=== PATIENT | male | born 1980 | race Caucasian/White ===

== ENCOUNTER 2017-02-05 21:07 | Emergency (ER) | payer BC ==
[~2017-02-05] VITALS: Ht 177.8 cm; Wt 103.9 kg
[~2017-02-05 21:07] MED LIST: LEVO50TA6; LEVO50TA6 PO; LPT/20 PO
[2017-02-05 21:22] VITALS: TEMP 37; Ht 177.8 cm; Wt 103.9 kg
[2017-02-05] MEDS ORDERED: ALBUT/IPRATROP 3MG/0.5MG NEB 3 ML VIAL INH STA (22:07)
[2017-02-05] MEDS ORDERED: DEXAMETHASONE SOD INJ 10 MG/ML VIAL PO ONE (22:15)
[2017-02-05 22:47] VITALS: O2SAT 98
--- NOTE | 2017-02-05 23:05 | DIAGNOSTIC IMAGING REPORT ---
CHEST 2 VIEWS ROUTINE CLINICAL HISTORY: Persistent cough COMPARISON STUDY: No previous studies for comparison. FINDINGS: The cardiac and mediastinal contours are normal. There is no evidence of focal pulmonary consolidation. There is no evidence of failure. No pleural effusions are visualized.[ IMPRESSION: No active disease in the chest. Electronically signed by: Mitul Esposito M.D. 02/05/2017 11:02 PM Dictated Date/Time: 02/05/2017 11:02 PM
[2017-02-05] MEDS ORDERED: PRED50TA PO (23:29)
[2017-02-05] MEDS ORDERED: HYDR5SYP11 PO (23:29)
[2017-02-05] MEDS ORDERED: HYCODAN 60ML BOTTLE HOMEPACK PO ONE (23:30)
[2017-02-05] MEDS ORDERED: ALBUTEROL HFA 8 GM INHALER INH ONE (23:49)
[2017-02-05 23:53] VITALS: BP 128/78; PULSE 82; O2SAT 96
--- NOTE | 2017-02-06 03:11 | EMERGENCY ROOM VISIT NOTE ---
History First contact with patient: 22:00 Chief Complaint: COUGH Stated Complaint: HEAVY COUGH, WEAKNESS, FEVER Nursing Triage Summary: c/o a cough for several days with green mucous History of Present Illness The patient is a 36 year old male who presents to the Emergency Room with complaints of productive cough for the past week with feeling fatigued and tired with subjective fever and chills. No temperature was taken. Patient denies chest pain, dyspnea, sore throat, neck stiffness, earache, sinus pain or congestion, abdominal pain. He does have asthma. He does not smoke. Review of Systems See HPI for pertinent positives & negatives. A total of 10 systems reviewed and were otherwise negative. Past Medical/Surgical History Medical Problems: (1) Asthma (2) Hyperlipidemia Nec/Nos (3) Hypothyroidism Nos (4) Pilonidal Cyst W/O Absc Surgical Problems: (1) H/O hernia repair Family History Cancer Diabetes mellitus Hypertension Social History Smoking Status: Never Smoker Drug Use: none Marital Status: Housing Status: lives with family Occupation Status: employed Current/Historical Medications Scheduled Prednisone (Prednisone), 50 MG PO DAILY Scheduled PRN Hydrocodone W/ Homatropine (Hycodan 5/1.5MG 5 Ml), 5-10 ML PO Q4H PRN for Cough Allergies Coded Allergies: Sulfa Antibiotics (Verified Allergy, Unknown, "gives me shivers", 02/05/17) Sulfa Drugs (Unverified Allergy, Unknown, ?, 02/05/17) PER DR RODRIGUEZ H&P [id number] Physical Exam Vital Signs Date Time Temp Pulse Resp B/P Pulse Ox O2 Delivery O2 Flow Rate FiO2 02/05/17 23:53 82 20 128/78 96 02/05/17 23:08 84 18 127/66 96 Room Air 02/05/17 22:47 98 Room Air 02/05/17 21:23 96 Room Air 02/05/17 21:22 37.0 103 18 109/84 96 Room Air Pain Rating (0-10): 2.0 Physical Exam VITALS: Vitals are noted on the nurse's note and reviewed by myself. Vital signs stable. GENERAL: Pleasant male, in no acute distress, nondiaphoretic, well-developed well-nourished. SKIN: The skin was without rashes, erythema, edema, or bruising. There is no tenting of the skin. Capillary reflex less than 2 seconds. HEAD: Normocephalic atraumatic. EARS: External auditory canals clear, tympanic membranes pearly cain without erythema or effusion bilaterally. EYES: Pupils equal round and reactive to light and accommodation. Conjunctivae without injection, sclerae without icterus. Extraocular movements intact. NOSE: Patent, turbinates without inflammation or discharge. No sinus tenderness. MOUTH: Mucous membranes moist. Pharynx without erythema or exudate. Uvula midline. Airway patent. Tongue does not deviate. NECK: Supple without nuchal rigidity. No lymphadenopathy. No thyromegaly. Cervical spine is nontender. No JVD. HEART: Regular rate and rhythm without murmurs gallops or rubs. LUNGS: Mild diffuse end expiratory wheezes, without rales or rhonchi. No dullness to percussion. No retractions or accessory muscle use. ABDOMEN: Positive bowel sounds x 4. Normal tympanic percussion. Soft, nontender, without masses or organomegaly. Delgado sign negative. No guarding or rebound tenderness. MUSCULOSKELETAL: No muscle atrophy, erythema, or edema noted. NEURO: Patient was alert and oriented to person place and time. Normal sensation to light and sharp touch. No focal neurological deficits. Medical Decision & Procedures Medications Administered Medications (Trade) Dose Ordered Sig/Henrik Route Start Time Stop Time Status Last Admin Dose Admin Albuterol/ Ipratropium (Duoneb) 3 ml NOW STAT INH 02/05/17 22:07 02/05/17 22:10 DC 02/05/17 22:41 3 ML Dexamethasone Sodium Phosphate (Decadron Inj) 10 mg NOW ONCE PO 02/05/17 22:15 02/05/17 22:16 DC 02/05/17 22:41 10 MG Hydrocodone Bit/ Homatropine Methylb (Hycodan Elix Homepack 5/1.5MG/ 5ML) 1 homepack UD ONCE PO 02/05/17 23:30 02/05/17 23:31 DC 02/05/17 23:47 1 HOMEPACK ED Course Prior records/ancillary studies reviewed. Triage Nursing notes reviewed. Additional history obtained from the family. The patient's history was concerning for respiratory difficulties. Differential diagnosis: Etiologies such as infections, reactive airway disease, pneumonia, pneumothorax , cardiac ischemia, pulmonary embolism, musculoskeletal, gastrointestinal, as well as others were entertained. Physical examination: As above. ER treatment provided: Nebulizer, prednisone On reassessment the patient felt better. Diagnostic interpretation by me: Imaging studies: Chest x-ray as above. CHEST 2 VIEWS ROUTINE CLINICAL HISTORY: Persistent cough COMPARISON STUDY: No previous studies for comparison. FINDINGS: The cardiac and mediastinal contours are normal. There is no evidence of focal pulmonary consolidation. There is no evidence of failure. No pleural effusions are visualized.[ IMPRESSION: No active disease in the chest. Electronically signed by: Mitul Esposito M.D. This appears to be consistent with bronchitis. Patient was well-appearing. No pneumonia on x-ray. Afebrile and nontoxic. He was advised to take medications as directed and to follow-up with family care in a few days or here in the ER sooner for chest pain, difficulty breathing, worsening signs or symptoms or as needed. By the evaluation outlined above emergent etiologies such as CHF, cardiac ischemia, pulmonary embolism, reactive airway disease, pneumonia, pneumothorax, musculoskeletal, serious bacterial infections, as well as others were deemed relatively unlikely. The pt informed about the findings as listed above. All questions were answered and pleased with the treatment. Return instructions were outlined and the patient was discharged in stable condition. Outpatient prescription management: Prednisone, Hycodan Referral: The patient was referred back to their primary care physician for follow-up in 2 to 3 days for a recheck of the current condition. Medical Decision As above Impression Primary Impression: Acute bronchitis Departure Information Dispostion Home / Self-Care Condition GOOD Prescriptions Hydrocodone W/ Homatropine (HYCODAN 5/1.5MG 5 ML) 1 Syp Syp 5-10 ML PO Q4H Y for Cough, #200 ML Prov: Kera Powers PA-C 02/05/17 Prednisone (Prednisone) 50 Mg Tab 50 MG PO DAILY for 4 Days, #4 TAB Prov: Kera Powers PA-C 02/05/17 Referrals No Doctor, Assigned (PCP) Forms HOME CARE DOCUMENTATION FORM, IMPORTANT VISIT INFORMATION Patient Instructions Bronchitis Acute, [facility] Additional Instructions Hycodan cough syrup: use one teaspoon every six hours only as needed for severe cough. It is best for use at night since it will cause sedation. This is a narcotic medication. Avoid alcohol, operating machinery or dangerous equipment, working on ladders or roofs, DRIVING, or situations where being under the influence may be dangerous. It is recommended to use an over-the- counter stool softener such as Colace, 100mg twice daily while taking this medication to avoid constipation. Albuterol Inhaler: Take 2 puffs four times daily for five days, then as needed. Prednisone 50mg: Once daily until the prescription is finished. It is best to take this earlier in the day as some patients note occasional difficulty falling asleep when taken in the late evening. Acetaminophen(Tylenol) may be used for fever or pain. Use 1000mg every six hours as needed. Avoid using more than 3000mg in a 24 hour period. (AND/OR) Ibuprofen(Motrin, Advil) may be used for fever or pain. Use 600mg every six hours as needed. Take with food. Avoid using more than 2400mg in a 24 hour period. Do not use 2400mg per day for more than three consecutive days without physician direction. Prolonged inappropriate use can lead to stomach upset or ulcers. Rest and drink plenty of fluids. Avoid smoke/smoking, fumes, dust, or any triggers in the past that may have affected your breathing. Continue current medications. Return to the ER for chest pain, difficulty breathing, fevers, vomiting, worsening of your condition, or as needed. Follow up with your primary physician this week for a recheck of your current condition. Problem Qualifiers Primary Impression: Acute bronchitis Bronchitis organism: unspecified organism Qualified Codes: J20.9 - Acute bronchitis, unspecified
== END 2017-02-05 23:54 | disposition home or self-care (01) ==
LOC: C.EDB 21:08
DX: J20.9 Acute bronchitis, unspecified (principal); E78.5 Hyperlipidemia, unspecified; E03.9 Hypothyroidism, unspecified; J45.909 Unspecified asthma, uncomplicated; Z79.899 Other long term (current) drug therapy; Z88.2 Allergy status to sulfonamides; Z80.9 Family history of malignant neoplasm, unspecified; Z83.3 Family history of diabetes mellitus; Z82.49 Family history of ischemic heart disease and other diseases of the circulatory system